=== PATIENT | female | born 1985 | race Caucasian/White ===

== ENCOUNTER 2022-07-24 09:17 | Emergency (ER) | payer OTHER ==
[~2022-07-24] VITALS: Ht 157.5 cm; Wt 84.8 kg
[~2022-07-24 09:17] MED LIST: BCP
[2022-07-24 10:45] LABS: BASOPHILS ABSOLUTE AUTO 0.07 K/mm3 (0.00-0.23); BASOPHILS PERCENT AUTO 1 % (0-2); EOSINOPHILS ABSOLUTE AUTO 0.48 K/mm3 (0.00-0.68); EOSINOPHILS PERCENT AUTO 4 % (0-6); Hematocrit 44.9 % (33.0-51.0); Hemoglobin 15.6 g/dL (11.5-16.0); IMMATURE GRAN ABSOLUTE AUTO 0.04 K/mm3 (0.00-0.10); IMMATURE GRAN PERCENT AUTO 0 % (0-1); LYMPHOCYTES ABSOLUTE AUTO 2.45 K/mm3 (0.84-5.20); LYMPHOCYTES PERCENT AUTO 21 % (21-46); MONOCYTES ABSOLUTE AUTO 0.64 K/mm3 (0.16-1.47); MONOCYTES PERCENT AUTO 6 % (4-13); Mean Corpuscular HGB 29.4 pg (26.0-34.0); Mean Corpuscular HGB Conc 34.7 g/dL (31.5-36.5); Mean Corpuscular Volume 85 fL (80-100); Mean Platelet Volume 10.6 fL (9.1-12.4); NEUTROPHILS ABSOLUTE AUTO 7.88 K/mm3 (1.96-9.15); NEUTROPHILS PERCENT AUTO 68 % (41-73); Platelet Count 393 K/mm3 (150-400); RDW Coefficient Variation 12.2 % (11.7-14.2); White Blood Cell Count 11.56 K/mm3 (4.00-11.30)
[2022-07-24 11:18] LABS: Albumin, Blood 3.9 g/dL (3.4-5.0); Albumin/Globulin Ratio 1.1 (0.8-1.8); Bilirubin, Total 0.3 mg/dL (0.1-1.0); Bun/Creatinine Ratio 14.6 (12.0-20.0); Calcium, Blood 8.7 mg/dL (8.5-10.1); Creatinine, Blood 0.69 mg/dL (0.40-1.00); Globulin, Blood 3.4 g/dL (2.2-4.0); Potassium, Blood 3.6 mmol/L (3.5-5.5); Total Protein, Blood 7.3 g/dL (6.4-8.2)
[2022-07-24] MEDS ORDERED: METPRE32 PO (11:45)
[2022-07-24 12:00] VITALS: BP 128/78
== END 2022-07-24 12:16 | disposition home or self-care (01) ==
LOC: ER 09:17
PROVIDERS: Emergency Medicine
DX: G35 Multiple sclerosis (principal)
CPT/HCPCS: 80053; 85025; J1885; J2930; J7030

== ENCOUNTER 2023-11-21 06:22 | Emergency (ER) | payer OTHER ==
[~2023-11-21] VITALS: Ht 157.5 cm; Wt 83.0 kg
[~2023-11-21 06:22] MED LIST changes: +Dexamethasone4 MG PO; +METPRE32 PO
[2023-11-21] MEDS ORDERED: NS 1,000 ML IV SCH (06:55)
[2023-11-21] MEDS ORDERED: Ketorolac Tromethamine 30mg Vial IV ONE (06:55)
[2023-11-21 07:42] LABS: Source, Urine Clean Catch
[2023-11-21 07:45] LABS: Bilirubin, Urine Neg (Neg); Blood, Urine Neg (Neg); Glucose Qualitative, Urine Neg (Neg); Ketones, Urine Neg (Neg); Leukocyte Esterase, Urine 1+ (Neg); Nitrite, Urine Neg (Neg); Protein, Urine Neg (Neg); Specific Gravity, Urine 1.015 (1.003-1.022); Urobilinogen, Urine NORM (Normal); pH, Urine 6.5 (5.0-8.0)
[2023-11-21 07:54] LABS: Appearance, Urine Hazy (Clear); Color, Urine Yellow (P-Yellow)
[2023-11-21 07:55] LABS: Bacteria Rare /hpf; Red Blood Cells, Urine Not Seen /hpf (0-2); Squamous Epithelial Cells Rare /hpf (Few); White Blood Cells, Urine 0-2 /hpf (0-5)
[2023-11-21 08:00] LABS: BASOPHILS ABSOLUTE AUTO 0.05 K/mm3 (0.00-0.23); BASOPHILS PERCENT AUTO 0 % (0-2); EOSINOPHILS PERCENT AUTO 4 % (0-6); Hematocrit 42.2 % (33.0-51.0); Hemoglobin 14.3 g/dL (11.5-16.0); IMMATURE GRAN ABSOLUTE AUTO 0.07 K/mm3 (0.00-0.10); IMMATURE GRAN PERCENT AUTO 1 % (0-1); LYMPHOCYTES ABSOLUTE AUTO 2.89 K/mm3 (0.84-5.20); LYMPHOCYTES PERCENT AUTO 24 % (21-46); MONOCYTES ABSOLUTE AUTO 0.71 K/mm3 (0.16-1.47); MONOCYTES PERCENT AUTO 6 % (4-13); Mean Corpuscular HGB 29.1 pg (26.0-34.0); Mean Corpuscular HGB Conc 33.9 g/dL (31.5-36.5); Mean Corpuscular Volume 86 fL (80-100); Mean Platelet Volume 10.8 fL (9.1-12.4); NEUTROPHILS ABSOLUTE AUTO 7.95 K/mm3 (1.96-9.15); NEUTROPHILS PERCENT AUTO 65 % (41-73); Platelet Count 539 K/mm3 (150-400); RDW Coefficient Variation 13.2 % (11.7-14.2); RDW Standard Deviation 40.3 fL (35.1-46.3); Red Blood Cell Count 4.91 M/mm3 (3.80-5.20); White Blood Cell Count 12.17 K/mm3 (4.00-11.30)
[2023-11-21 08:25] LABS: Albumin, Blood 3.7 g/dL (3.4-5.0); Albumin/Globulin Ratio 1.1 (0.8-1.8); Bilirubin, Total 0.3 mg/dL (0.1-1.0); Bun/Creatinine Ratio 14.4 (12.0-20.0); Calcium, Blood 8.9 mg/dL (8.5-10.1); Creatinine, Blood 0.7 mg/dL (0.40-1.00); Globulin, Blood 3.3 g/dL (2.2-4.0)
[2023-11-21] MEDS ORDERED: Acetaminophen 500 MG Tab PO ONE (08:40)
[2023-11-21] MEDS ORDERED: Amphetamine Sal20 MG PO (09:00)
[2023-11-21] MEDS ORDERED: CARVEDILOL3.125 MG PO (09:00)
[2023-11-21] MEDS ORDERED: ZANAFLEX413 PO (09:01)
[2023-11-21] MEDS ORDERED: PROG100 PO (09:01)
[2023-11-21] MEDS ORDERED: ARMOUR THYROID PO (09:01)
[2023-11-21] MEDS ORDERED: FENOFIBRATE145 MG PO (09:01)
[2023-11-21] MEDS ORDERED: AMLODIPINE BESY10 MG PO (09:01)
[2023-11-21] MEDS ORDERED: AMPDEX10 PO (09:01)
[2023-11-21] MEDS ORDERED: Metformin HCl750 MG PO (09:02)
[2023-11-21] MEDS ORDERED: KESIMPTA P20 MG/0.4 SC (09:03)
[2023-11-21 09:30] LABS: Influenza A, PCR NEGATIVE (NEGATIVE); Influenza B, PCR NEGATIVE (NEGATIVE); Resp Syncytial Virus, PCR NEGATIVE (NEGATIVE); SARS-Cov-2 (COVID-19) PCR, MMC NEGATIVE (NEGATIVE)
[2023-11-21 10:00] VITALS: BP 133/87
[2023-11-21] MEDS ORDERED: PRED20 PO (10:10)
== END 2023-11-21 10:24 | disposition home or self-care (01) ==
LOC: ER 06:22
PROVIDERS: Emergency Medicine
DX: G35 Multiple sclerosis (principal); J06.9 Acute upper respiratory infection, unspecified; Z79.899 Other long term (current) drug therapy; Z88.2 Allergy status to sulfonamides; Z88.8 Allergy status to other drugs, medicaments and biological substances
CPT/HCPCS: 0241U; 71045; 80053; 81001; 85025; 87086; 96361; 96374; 99283-25; A9270; J1885; J7030

== ENCOUNTER 2024-03-12 10:24 | Emergency (ER) | payer OTHER ==
[~2024-03-12] VITALS: Ht 154.9 cm; Wt 77.1 kg
[~2024-03-12 10:24] MED LIST changes: +AMLODIPINE BESY10 MG PO; +AMPDEX10 PO; +ARMOUR THYROID PO; +Amphetamine Sal20 MG PO; +CARVEDILOL3.125 MG PO; +FENOFIBRATE145 MG PO; +KESIMPTA P20 MG/0.4 SC; +Metformin HCl750 MG PO; +PRED20 PO; +PROG100 PO; +ZANAFLEX413 PO
[2024-03-12] MEDS ORDERED: Labetalol HCL 5 MG/ML 20MLVIAL IV ONE ×2 (10:50→11:40)
[2024-03-12] MEDS ORDERED: AmLODIPine Besylate 5 MG Tab PO ONE (10:50)
[2024-03-12] MEDS ORDERED: Carvedilol 3.125 MG Tab PO ONE (10:50)
[2024-03-12 10:55] LABS: BASOPHILS ABSOLUTE AUTO 0.06 K/mm3 (0.00-0.23); BASOPHILS PERCENT AUTO 0 % (0-2); EOSINOPHILS PERCENT AUTO 1 % (0-6); Hematocrit 45.9 % (33.0-51.0); Hemoglobin 15.9 g/dL (11.5-16.0); IMMATURE GRAN ABSOLUTE AUTO 0.07 K/mm3 (0.00-0.10); IMMATURE GRAN PERCENT AUTO 0 % (0-1); LYMPHOCYTES ABSOLUTE AUTO 2.57 K/mm3 (0.84-5.20); LYMPHOCYTES PERCENT AUTO 16 % (21-46); MONOCYTES ABSOLUTE AUTO 0.73 K/mm3 (0.16-1.47); MONOCYTES PERCENT AUTO 5 % (4-13); Mean Corpuscular HGB 30.2 pg (26.0-34.0); Mean Corpuscular HGB Conc 34.6 g/dL (31.5-36.5); Mean Corpuscular Volume 87 fL (80-100); Mean Platelet Volume 10.5 fL (9.1-12.4); NEUTROPHILS ABSOLUTE AUTO 12.18 K/mm3 (1.96-9.15); NEUTROPHILS PERCENT AUTO 78 % (41-73); Platelet Count 488 K/mm3 (150-400); RDW Coefficient Variation 13.2 % (11.7-14.2); RDW Standard Deviation 42.2 fL (35.1-46.3); Red Blood Cell Count 5.26 M/mm3 (3.80-5.20); White Blood Cell Count 15.71 K/mm3 (4.00-11.30)
[2024-03-12 11:17] LABS: Albumin, Blood 3.6 g/dL (3.4-5.0); Bilirubin, Total 0.5 mg/dL (0.1-1.0); Bun/Creatinine Ratio 11.7 (12.0-20.0); Calcium, Blood 9.4 mg/dL (8.5-10.1); Creatinine, Blood 0.69 mg/dL (0.40-1.00); Globulin, Blood 3.7 g/dL (2.2-4.0); Potassium, Blood 2.9 mmol/L (3.5-5.5); Total Protein, Blood 7.3 g/dL (6.4-8.2)
[2024-03-12] MEDS ORDERED: Potassium Chloride 20 MEQ TabCR PO ONE (11:35)
[2024-03-12] MEDS ORDERED: Mag Hydrox/AL Hydrox/Simeth 30 ML UDC PO ONE (11:40)
[2024-03-12] MEDS ORDERED: Lidocaine 2% Viscous Soln 15 ML UDC PO ONE (11:40)
[2024-03-12] MEDS ORDERED: POTCHL20ER PO (12:53)
[2024-03-12 13:01] VITALS: BP 165/101
== END 2024-03-12 13:01 | disposition home or self-care (01) ==
LOC: ER 10:24
PROVIDERS: Emergency Medicine
DX: I16.0 Hypertensive urgency (principal); I10 Essential (primary) hypertension; R07.9 Chest pain, unspecified; E87.6 Hypokalemia; Z88.2 Allergy status to sulfonamides; Z88.8 Allergy status to other drugs, medicaments and biological substances; Z79.52 Long term (current) use of systemic steroids; Z79.899 Other long term (current) drug therapy
CPT/HCPCS: 80053; 83690; 84484; 85025; 93005; 93010; 96374; 96376; 99285-25; A9270

== ENCOUNTER 2024-04-21 11:22 | Emergency (ER) | payer BC ==
[~2024-04-21] VITALS: Ht 154.9 cm; Wt 78.9 kg
[2024-04-21] MEDS ORDERED: Ondansetron HCl 2 MG / ML 2ML Vial IV ONE (15:00)
[2024-04-21] MEDS ORDERED: Ketorolac Tromethamine 30mg Vial IV ONE (15:00)
[2024-04-21] MEDS ORDERED: FentaNYL Citrate 50 MCG/ML 2 ML Injection IV ONE (15:00)
[2024-04-21] MEDS ORDERED: Labetalol HCL 5 MG/ML 20MLVIAL IV ONE (15:00)
[2024-04-21] MEDS ORDERED: Labetalol HCL 5 MG/ML 4ML Injection (Single Dose) IV ONE (15:05)
[2024-04-21] MEDS ORDERED: HYDROcodone 5-APAP 325 TAB PO ONE (15:10)
[2024-04-21 16:30] VITALS: BP 154/96
== END 2024-04-21 16:32 | disposition home or self-care (01) ==
LOC: ER 11:22
DX: I16.0 Hypertensive urgency (principal); I10 Essential (primary) hypertension; Z79.899 Other long term (current) drug therapy
CPT/HCPCS: 96374; 96375; 99283-25; A9270; J2405

== ENCOUNTER → 2024-04-21 | Outpatient (CLI) | payer BC ==
[~2024-04-21] MED LIST changes: +POTCHL20ER PO
[2024-04-21 10:25] LABS: BASOPHILS ABSOLUTE AUTO 0.07 K/mm3 (0.00-0.23); BASOPHILS PERCENT AUTO 0 % (0-2); EOSINOPHILS PERCENT AUTO 1 % (0-6); Hematocrit 43.7 % (33.0-51.0); Hemoglobin 14.9 g/dL (11.5-16.0); IMMATURE GRAN ABSOLUTE AUTO 0.43 K/mm3 (0.00-0.10); IMMATURE GRAN PERCENT AUTO 2 % (0-1); LYMPHOCYTES ABSOLUTE AUTO 4.01 K/mm3 (0.84-5.20); LYMPHOCYTES PERCENT AUTO 18 % (21-46); MONOCYTES ABSOLUTE AUTO 1.33 K/mm3 (0.16-1.47); MONOCYTES PERCENT AUTO 6 % (4-13); Mean Corpuscular HGB 30.4 pg (26.0-34.0); Mean Corpuscular HGB Conc 34.1 g/dL (31.5-36.5); Mean Corpuscular Volume 89 fL (80-100); Mean Platelet Volume 9.7 fL (9.1-12.4); NEUTROPHILS ABSOLUTE AUTO 16.01 K/mm3 (1.96-9.15); NEUTROPHILS PERCENT AUTO 73 % (41-73); Platelet Count 425 K/mm3 (150-400); RDW Coefficient Variation 13.2 % (11.7-14.2); RDW Standard Deviation 43.3 fL (35.1-46.3); White Blood Cell Count 21.95 K/mm3 (4.00-11.30)
[2024-04-21 10:37] LABS: Albumin, Blood 3.2 g/dL (3.4-5.0); Bilirubin, Total 0.3 mg/dL (0.1-1.0); Bun/Creatinine Ratio 21.5 (12.0-20.0); Calcium, Blood 8.6 mg/dL (8.5-10.1); Creatinine, Blood 0.65 mg/dL (0.40-1.00); Globulin, Blood 3.1 g/dL (2.2-4.0); Potassium, Blood 3.3 mmol/L (3.5-5.5); Total Protein, Blood 6.3 g/dL (6.4-8.2)
== END ==
LOC: LAB 10:21 → LAB SHORT 10:21
PROVIDERS: Physician Assistant Medical
DX: R42 Dizziness and giddiness (principal)
CPT/HCPCS: 80053; 85025

== ENCOUNTER → 2024-06-26 | Outpatient (CLI) | payer BC | LOC: LAB SHORT 08:17 → LAB 08:17 | DX: E03.9 Hypothyroidism, unspecified (principal); E86.0 Dehydration; R73.9 Hyperglycemia, unspecified ==

== ENCOUNTER → 2024-11-05 | Outpatient (CLI) | payer BC ==
[2024-11-05 19:53] LABS: Influenza A/2009-H1 Not Detected (NOT DETECT); SARS-Cov-2 (COVID-19), BioFire Detected (NOT DETECT)
== END ==
LOC: LAB 17:42 → LAB SHORT 17:42
PROVIDERS: Student in an Organized Health Care Education/Training Program
DX: J06.9 Acute upper respiratory infection, unspecified (principal)
CPT/HCPCS: 0202U